=== PATIENT | female | born 1955 | race Caucasian/White ===

== ENCOUNTER 2024-07-06 13:39 | Outpatient (CLI) | payer MEDICARE, SELFPAY ==
--- NOTE | ~2024-07-06 | CT_ITS ---
EXAMINATION:CT lung screening DATE: 07/06/2024 13:54 INDICATION: Personal history of nicotine dependence. Current smoker with a 25 pack-year history. TECHNIQUE: Computed tomography (CT) of the chest was performed without intravenous contrast. Automate d exposure control and iterative reconstruction technique were employed. The dose-length product (DLP ) was 45.17 mGy-cm. COMPARISON: None. FINDINGS: There is mild emphysema. There is mild scarring at the lung apices. No pleural effusion. Th e heart size is normal. There are coronary artery calcifications. No pericardial effusion. There is a 2.7 cm mass in left adrenal gland measuring low attenuation, consistent with an adenoma. There is se luis thoracic spondylosis. IMPRESSION: 1. Lung-RADS category 2: Benign appearance or behavior. Continue annual screening with noncontrast lo w-dose chest CT in 12 months. Reviewed, dictated and finalized at location A. IMPRESSION: 1. Lung-RADS category 2: Benign appearance or behavior. Continue annual screeni ng with noncontrast low-dose chest CT in 12 months.
== END 2024-07-06 13:40 ==
LOC: MICIMG 13:40
PROVIDERS: PCP Student in an Organized Health Care Education/Training Program; Visit Provider Student in an Organized Health Care Education/Training Program
DX: Z12.2 Encounter for screening for malignant neoplasm of respiratory organs (principal); Z87.891 Personal history of nicotine dependence
CPT/HCPCS: 71271

== ENCOUNTER 2024-10-22 08:22 | Outpatient (CLI) | payer MEDICARE, SELFPAY ==
--- NOTE | ~2024-10-22 | XR_ITS ---
3 VIEWS LUMBAR SPINE Ordering provider: Bob Razo MD History: . M54.9 - Dorsalgia, unspecified . Comparison: None. FINDINGS: VERTEBRAL BODIES: No visible fracture or subluxation. Degenerative changes of the spine. Mild dextros coliosis. DISK SPACES: Mild Narrowing of the disc L2-3. Facet joint disease at the level of L4-L5 and L5-S1. SOFT TISSUES: Aortic atherosclerotic changes. IMPRESSION: No acute osseous abnormality lumbar spine. Reviewed, dictated and finalized at location A. MER CLIMBER
--- NOTE | ~2024-10-22 | XR_ITS ---
3 VIEWS THORACIC SPINE Ordering provider: Bob Razo MD History: . M54.9 - Dorsalgia, unspecified . Comparison: None. FINDINGS: VERTEBRAL BODIES: Normal height and alignment. No visible fracture or subluxation. Mild levoscoliosis . Degenerative changes of the spine. DISK SPACES: Multilevel narrowing of the disc spaces in the upper and midthoracic area. SOFT TISSUES: Normal. IMPRESSION: No acute osseous abnormality of the thoracic spine. Reviewed, dictated and finalized at location A. RITY SYSTEMS MANAGER
== END 2024-10-22 08:23 | disposition home or self-care (01) ==
PROVIDERS: PCP Family Medicine; Visit Provider Family Medicine
DX: M54.9 Dorsalgia, unspecified (principal)
CPT/HCPCS: 72072; 72110

== ENCOUNTER 2025-11-05 13:47 | Outpatient (CLI) | payer MEDICARE, SELFPAY ==
--- NOTE | ~2025-11-05 | US_ITS ---
EXAM/PROCEDURE: US art doppler w press LE BI HISTORY: R09.89 - Other specified symptoms and signs involving the... COMPARISON: None available. TECHNIQUE: JANIE FINDINGS: Right and left brachial pressure readings are 122 and 119 Right and left lower 70 segmental pressure readings are as follows: Distal thigh: 129 and 140 Popliteal: 146 and 142 Dorsalis pedis: 117 and 121 Posterior tibial: 1:30 and 129 Great toe: 80 and 77 Plethysmography appears slightly broadened but otherwise normal. Right and left ABIs are 1.07 and 1.06 TBI's: 0.66 and 0.63 IMPRESSION: 1. Both ABIs within normal limits. 2. Mild widening of the plethysmography and perhaps mildly depressed TBI's could represent mild peripheral artery disease. Reviewed, dictated and finalized at location A. SPECIALIST IMPRESSION: 1. Both ABIs within normal limits. 2. Mild widening of the plethysmography and perhaps mildly depressed TBI's coul d represent mild peripheral artery disease.
== END 2025-11-05 13:48 | disposition home or self-care (01) ==
PROVIDERS: PCP Family Medicine; Visit Provider Family Medicine
DX: I73.9 Peripheral vascular disease, unspecified (principal); R09.89 Other specified symptoms and signs involving the circulatory and respiratory systems; R29.898 Other symptoms and signs involving the musculoskeletal system
CPT/HCPCS: 93923